=== PATIENT | male | born 1995 | race Caucasian/White ===

== ENCOUNTER 2016-10-04 21:46 | Emergency (ER) | payer SELFPAY ==
[~2016-10-04] VITALS: Ht 180.3 cm; Wt 172.8 kg
--- NOTE | 2016-10-04 21:52 | NUR ---
DR HSU AT BEDSIDE FOR EVAL
--- NOTE | 2016-10-04 21:55 | NUR ---
TO BED 5 A 21 YO MALE BISELF WITH C/O ITCHY / REDNESS ON STOMACH AFTER TAKING TYLENOL 3 X4 HRS AGO, NO SOB NOTED. GASTRIC SLEEVE SX ON SATURDAY AT [facility]. PATIENT IS AAOX4, AMBULATORY WITH STEADY GAIT. VSS. BREATHING EVEN AND UNLABORED. NOTED WITH HIVES/REDNESS ON THE ABDOMEN. INITIATED COMFORT MEASURES. GOWNED. AWAITING FOR ER MD ANTONIO.
[2016-10-04] MEDS ORDERED: DEXAMETHASONE SOD PHOSPHATE 10 MG/ML VIAL ONE (22:55)
[2016-10-04] MEDS ORDERED: EPINEPHRINE (1:1000) 1 MG/ML AMPUL ONE (22:55)
[2016-10-04] MEDS ORDERED: diphenhydrAMINE HCL 50 MG/ML VIAL ONE (22:55)
[2016-10-04] MEDS ORDERED: EPINEPHRINE (1:1000) 1 MG/ML AMPUL SUBCUT ONE (23:00)
[2016-10-04] MEDS ORDERED: DEXAMETHASONE SOD PHOSPHATE 4 MG/ML VIAL IM ONE (23:00)
[2016-10-04] MEDS ORDERED: diphenhydrAMINE HCL 50 MG/ML VIAL IM ONE (23:00)
--- NOTE | 2016-10-04 23:11 | NUR ---
MEDICATED PATIENT PER DR HSU'S ORDERS.
--- NOTE | 2016-10-04 23:23 | NUR ---
Patient discharged to home in stable condition. Written and verbal after care instructions given. Patient verbalizes understanding of instruction. Patient is ambulatory with steady gait, accompanied by mom going home. No further complaints.
[2016-10-04 23:24] VITALS: BP 128/76
== END 2016-10-04 23:25 | disposition home or self-care (01) ==
LOC: ER 21:46
DX: L50.0 Allergic urticaria (principal); T39.1X5A Adverse effect of 4-Aminophenol derivatives, initial encounter; Y92.89 Other specified places as the place of occurrence of the external cause
CPT/HCPCS: A4606; J0171; J1100; J1200; Z7610

== ENCOUNTER → 2023-08-06 | Emergency (ER) | payer OTHER ==
[~2023-08-06] VITALS: Ht 180.3 cm; Wt 124.7 kg
[~2023-08-06] MED LIST: AMOX-430 PO; IBUP-1955 PO; KETOROLAC TROMETHAMINE 15 MG/ML VIAL ONE; dexaMETHasone SOD PHOSPHATE 0 ML ONE
[2023-08-06] MEDS: KETOROLAC TROMETHAMINE 15 MG/ML VIAL IM ONE (10:53)
[2023-08-06] MEDS: dexaMETHasone SOD PHOSPHATE 10 MG/ML VIAL IM ONE (10:53)
[2023-08-06 11:08] VITALS: BP 140/72; TEMP 98; O2SAT 97
== END | disposition home or self-care (01) ==
LOC: ER 10:15
DX: J02.9 Acute pharyngitis, unspecified (principal); Z98.890 Other specified postprocedural states
CPT/HCPCS: 86403-TC; 87070-TC; J1100; J1885